=== PATIENT | female | born 1960 | race Caucasian/White ===

== ENCOUNTER → 2023-11-25 08:03 | Outpatient (REF) | payer BC, SELFPAY | LOC: HWWDC 08:03 | PROVIDERS: ATTENDING PHYSICIAN Obstetrics & Gynecology; FAMILY PHYSICIAN Family Medicine; REFERRING PHYSICIAN Internal Medicine Nephrology | DX: Z12.31 Encounter for screening mammogram for malignant neoplasm of breast (principal) | CPT/HCPCS: 77063; 77067 ==

== ENCOUNTER → 2024-01-15 06:37 | Day surgery (SDC) | payer BC, SELFPAY | LOC: GI 06:37 | PROVIDERS: ATTENDING PHYSICIAN Internal Medicine Gastroenterology | DX: Z12.11 Encounter for screening for malignant neoplasm of colon (principal); K64.8 Other hemorrhoids; K63.5 Polyp of colon | CPT/HCPCS: 45380; 88305 ==

== ENCOUNTER 2024-05-05 06:23 | Outpatient (RCR) | payer BC, SELFPAY | END 2024-05-05 23:59 | disposition home or self-care (01) | LOC: RPT 06:23 | PROVIDERS: ATTENDING PHYSICIAN Urology; FAMILY PHYSICIAN Family Medicine | DX: N39.0 Urinary tract infection, site not specified (principal); M62.89 Other specified disorders of muscle; M62.838 Other muscle spasm; M62.81 Muscle weakness (generalized); R27.8 Other lack of coordination; R10.2 Pelvic and perineal pain; Z73.6 Limitation of activities due to disability | CPT/HCPCS: 97140; 97163; 97530 ==

== ENCOUNTER 2024-05-12 09:57 | Outpatient (RCR) | payer BC, SELFPAY | END 2024-05-12 23:59 | disposition home or self-care (01) | LOC: RPT 09:57 | PROVIDERS: ATTENDING PHYSICIAN Urology; FAMILY PHYSICIAN Family Medicine | DX: N30.10 Interstitial cystitis (chronic) without hematuria (principal); M62.89 Other specified disorders of muscle; M62.838 Other muscle spasm; M62.81 Muscle weakness (generalized); R27.8 Other lack of coordination; R10.2 Pelvic and perineal pain | CPT/HCPCS: 97140; 97530 ==

== ENCOUNTER 2024-06-24 15:09 | Outpatient (RCR) | payer BC, SELFPAY | END 2024-06-24 23:59 | disposition home or self-care (01) | LOC: RPT 15:09 | PROVIDERS: ATTENDING PHYSICIAN Urology; FAMILY PHYSICIAN Family Medicine | DX: N39.0 Urinary tract infection, site not specified (principal); N30.10 Interstitial cystitis (chronic) without hematuria (principal); M62.89 Other specified disorders of muscle; M62.838 Other muscle spasm; M62.81 Muscle weakness (generalized); M27.8 Other specified diseases of jaws; R27.8 Other lack of coordination; R10.2 Pelvic and perineal pain; Z73.6 Limitation of activities due to disability | CPT/HCPCS: 97140; 97530 ==

== ENCOUNTER 2024-07-14 10:02 | Outpatient (RCR) | payer BC, SELFPAY | END 2024-07-14 23:59 | disposition home or self-care (01) | LOC: RPT 10:02 | PROVIDERS: ATTENDING PHYSICIAN Urology; FAMILY PHYSICIAN Family Medicine | DX: N39.0 Urinary tract infection, site not specified (principal); M62.89 Other specified disorders of muscle (principal); M62.838 Other muscle spasm; M62.81 Muscle weakness (generalized); M27.8 Other specified diseases of jaws; R10.2 Pelvic and perineal pain; Z73.6 Limitation of activities due to disability; N30.10 Interstitial cystitis (chronic) without hematuria; R27.8 Other lack of coordination | CPT/HCPCS: 97140; 97530 ==

== ENCOUNTER 2024-12-04 08:03 | Outpatient (RCR) | payer BC, SELFPAY | END 2024-12-04 23:59 | disposition home or self-care (01) | LOC: RPT 08:03 | PROVIDERS: ATTENDING PHYSICIAN Physical Medicine & Rehabilitation; FAMILY PHYSICIAN Family Medicine | DX: M54.12 Radiculopathy, cervical region (principal); M54.16 Radiculopathy, lumbar region; M22.8X1 Other disorders of patella, right knee; M22.8X2 Other disorders of patella, left knee; Z73.6 Limitation of activities due to disability; M62.81 Muscle weakness (generalized); R26.89 Other abnormalities of gait and mobility | CPT/HCPCS: 97110; 97162; 97530 ==

== ENCOUNTER → 2024-12-29 09:24 | Outpatient (REF) | payer BC, SELFPAY | LOC: WDC 09:24 | PROVIDERS: ATTENDING PHYSICIAN Obstetrics & Gynecology; FAMILY PHYSICIAN Family Medicine | DX: R92.8 Other abnormal and inconclusive findings on diagnostic imaging of breast (principal) | CPT/HCPCS: 77065 ==

== ENCOUNTER 2025-01-01 09:33 | Outpatient (RCR) | payer BC, SELFPAY | END 2025-01-01 23:59 | disposition home or self-care (01) | LOC: RPT 09:33 | PROVIDERS: ATTENDING PHYSICIAN Physical Medicine & Rehabilitation; FAMILY PHYSICIAN Family Medicine | DX: M54.12 Radiculopathy, cervical region (principal); M54.16 Radiculopathy, lumbar region; M22.8X1 Other disorders of patella, right knee; M22.8X2 Other disorders of patella, left knee; Z73.6 Limitation of activities due to disability; M62.81 Muscle weakness (generalized); R26.89 Other abnormalities of gait and mobility | CPT/HCPCS: 97110; 97112; 97140; 97530 ==

== ENCOUNTER 2025-01-14 12:04 | Outpatient (RCR) | payer BC, SELFPAY | END 2025-01-14 23:59 | disposition home or self-care (01) | LOC: RPT 12:04 | PROVIDERS: ATTENDING PHYSICIAN Physical Medicine & Rehabilitation; FAMILY PHYSICIAN Family Medicine | DX: M54.12 Radiculopathy, cervical region (principal); M54.16 Radiculopathy, lumbar region; M22.8X1 Other disorders of patella, right knee; M22.8X2 Other disorders of patella, left knee; Z73.6 Limitation of activities due to disability; M62.81 Muscle weakness (generalized); R26.89 Other abnormalities of gait and mobility | CPT/HCPCS: 97112; 97530 ==

== ENCOUNTER → 2025-06-18 13:55 | Outpatient (REF) | payer BC, SELFPAY | LOC: DHSLP 13:55 | PROVIDERS: ATTENDING PHYSICIAN Otolaryngology; FAMILY PHYSICIAN Family Medicine | DX: G47.33 Obstructive sleep apnea (adult) (pediatric) (principal) | CPT/HCPCS: 95800 ==